=== PATIENT | male | born 1940 | race Caucasian/White ===

== ENCOUNTER 2023-06-28 01:01 | Emergency (ER) | payer SELFPAY ==
[~2023-06-28] VITALS: Ht 177.8 cm; Wt 74.4 kg
[2023-06-28] MEDS ORDERED: ACETAMINOPHEN ES 500 MG TABLET PO ONE (01:30)
[2023-06-28 01:58] LABS: BASOPHILS % (AUTO) 0.1 % (0.0-2.0); EOSINOPHILS # (AUTO) 0.1 K/uL (0.0-0.7); EOSINOPHILS % (AUTO) 1.6 % (0.0-6.0); HEMATOCRIT 33 % (39-51); HEMOGLOBIN 10.6 g/dL (13.5-17.5); LYMPHOCYTES # (AUTO) 0.9 K/uL (0.8-4.8); MEAN CORPUSCULAR HEMOGLOBIN 30 PG (26.0-33.0); MEAN CORPUSCULAR HGB CONC 33 g/dl (31.0-36.0); MEAN CORPUSCULAR VOLUME 92 fL (80-96); MONOCYTES # (AUTO) 0.5 K/uL (0.1-1.30); MONOCYTES % (AUTO) 9.5 % (2.0-12.0); NEUTROPHILS # (AUTO) 4.2 K/uL (1.8-8.9); NEUTROPHILS % (AUTO) 72.8 % (43.0-81.0); PLATELET COUNT (AUTO) 119 K/uL (150-450); RED BLOOD CELL COUNT(AUTO) 3.54 MIL/uL (4.5-6.0); RED CELL DISTRIBUTION WIDTH 14.2 % (11.5-15.0); WHITE BLOOD COUNT (AUTO) 5.8 K/uL (4.3-11.0)
[2023-06-28 02:16] LABS: CALCIUM, SERUM 8.4 mg/dL (8.5-10.1); CARBON DIOXIDE 21 mmol/L (21-32); CHLORIDE 109 mmol/L (98-107); CREATININE 2.9 mg/dL (0.6-1.3); GLUCOSE 125 mg/dL (74-106); POTASSIUM 4.1 mmol/L (3.5-5.1); SODIUM SERUM 143 mmol/L (136-145); UREA NITROGEN, BLOOD 45 mg/dL (7-18)
[2023-06-28 02:21] LABS: ALANINE AMINOTRANSFERASE 15 U/L (12-78); ALKALINE PHOSPHATASE 91 U/L (46-116); ASPARTATE AMINOTRANSFERASE 19 U/L (15-37); BILIRUBIN,DIRECT 0.2 mg/dL (0.0-0.2); BILIRUBIN,TOTAL 0.6 mg/dL (0.2-1.0); TOTAL PROTEIN, SERUM 6.1 g/dL (6.4-8.2)
[2023-06-28] MEDS ORDERED: ACETAMINOPHEN ES 500 MG TABLET ONE (02:23)
[2023-06-28 02:53] LABS: APPEARANCE,URINE CLOUDY (CLEAR); BILIRUBIN,URINE NEGATIVE (NEGATIVE); BLOOD, URINE NEGATIVE Ery/uL (NEGATIVE); COLOR,URINE YELLOW (YELLOW); KETONES,URINE NEGATIVE (NEGATIVE); LEUKOCYTE ESTERASE ,URINE 1+ (NEGATIVE); NITRITE, URINE POSITIVE (NEGATIVE); PROTEIN,URINE 1+ mg/dl (NEGATIVE); UGLUCOSE NEGATIVE (NEGATIVE); UROBILINOGEN,URINE 0.2 EU/dL (0.2)
[2023-06-28 03:03] LABS: ADD URINE CULTURE YES; BACTERIA,URINE Many /HPF (None Seen); RBC,URINE 0-2 /HPF (0-2); SQUAMOUS EPITHELIAL CELL,UR Rare /HPF (None Seen); WBC,URINE 0-2 /HPF (0-3)
[2023-06-28 04:52] VITALS: BP 122/61; TEMP 97; O2SAT 99
== END 2023-06-28 06:11 | disposition home or self-care (01) ==
LOC: ER 01:05
DX: M79.652 Pain in left thigh (principal); M79.651 Pain in right thigh; R79.89 Other specified abnormal findings of blood chemistry; I10 Essential (primary) hypertension; Z98.890 Other specified postprocedural states; Z88.5 Allergy status to narcotic agent
CPT/HCPCS: 36415; 72170-TC; 80048-TC; 80076-TC; 81001; 85025-TC; 87086-TC